=== PATIENT | male | born 1950 | race Caucasian/White ===

== ENCOUNTER 2021-06-29 16:44 | Inpatient (IN) | payer MEDICARE ==
[~2021-06-29] VITALS: Ht 182.9 cm; Wt 100.0 kg
[2021-06-29] MEDS ORDERED: aspirin 81mg tab.chew PO ONE (16:50)
[2021-06-29] MEDS ORDERED: metoprolol tartrate 50mg tablet PO ONE (17:30)
[2021-06-29] MEDS ORDERED: metoprolol tartrate 1mg/ml inj IV ONE (17:30)
[2021-06-29 17:34] LABS: BASOPHILS # (AUTO) 0.1 X10'3 (0-0.2); EOSINOPHILS # (AUTO) 0.1 X10'3 (0-0.9); MONOCYTES # (AUTO) 1.1 X10'3 (0-0.9); MONOCYTES % (AUTO) 23.2 % (2-12); NEUTROPHILS # (AUTO) 2.6 X10'3 (1.8-7.7); WHITE BLOOD COUNT 4.8 X10'3 (4.5-11.0)
[2021-06-29] MEDS ORDERED: normal saline 1000ML IV soln IVB ONE (17:35)
[2021-06-29] MEDS ORDERED: magnesium 2GM in 50ml NS 50 ML IV ONE (17:35)
[2021-06-29] MEDS ORDERED: LORazepam 2 mg/ml vial IV ONE (17:35)
[2021-06-29 17:36] LABS: BASOPHILS % (AUTO) 2.2 % (0-1); EOSINOPHILS % (AUTO) 2.7 % (0-6); HEMOGLOBIN 13.4 g/dl (14.0-17.9); LYMPHOCYTES # (AUTO) 0.9 X10'3 (1.1-4.8); LYMPHOCYTES % (AUTO) 17.8 % (21-51); MEAN CORPUSCULAR HEMOGLOBIN 33.8 PG (27.0-31.0); MEAN CORPUSCULAR HGB CONC 33.4 g/dL (33.0-36.5); MEAN CORPUSCULAR VOLUME 101.4 FL (78-98); MEAN PLATELET VOLUME 8.9 FL (7.4-10.4); NEUTROPHILS % (AUTO) 54.1 % (42-75); PLATELET COUNT 127 X10'3 (140-440); RED BLOOD COUNT 3.95 X10'6 (4.70-6.10); RED CELL DISTRIBUTION WIDTH 14.3 % (11.5-14.5)
[2021-06-29 17:53] LABS: ALANINE AMINOTRANSFERASE 61 U/L (12-78); ALBUMIN 4.1 G/DL (3.4-5.0); ALBUMIN/GLOBULIN RATIO 0.9 (1.1-1.5); ALKALINE PHOSPHATASE 145 IU/L (46-116); ANION GAP 11 (8-16); ASPARTATE AMINO TRANSFERASE 123 U/L (10-37); BILIRUBIN,TOTAL 1.7 MG/DL (0.1-1.0); BLOOD UREA NITROGEN 10 MG/DL (7-18); BUN/CREATININE RATIO 15.2 (5.4-32.0); CALCIUM 9.4 MG/DL (8.5-10.1); CHLORIDE 104 MMOL/L (99-107); CREATININE 0.66 MG/DL (0.60-1.10); GLUCOSE 104 MG/DL (70-104); POTASSIUM 4.1 MMOL/L (3.5-5.1); SODIUM 138 MMOL/L (135-145); TOTAL CARBON DIOXIDE 22.6 MMOL/L (24-32); TOTAL PROTEIN 8.5 G/DL (6.4-8.2); eGFR > 90 ML/MIN
[2021-06-29 18:01] LABS: MAGNESIUM 1.7 MG/DL (1.5-2.4)
[2021-06-29 18:04] LABS: PLATELET ESTIMATE DECREASED; TOTAL CELLS COUNTED 100
[2021-06-29 18:05] LABS: LARGE PLATELETS FEW
[2021-06-29] MEDS ORDERED: enoxaparin 100mg/ml syringe SUBCUT ONE (19:30)
[2021-06-29] MEDS ORDERED: ondansetron/PF 4mg/2ml inj IV PRN (20:10)
[2021-06-29] MEDS ORDERED: dextrose 5%-1/2 normal saline 1,000 ML IV SCH (20:10)
[2021-06-29] MEDS ORDERED: potassium Cl 20 mEq SR tablet PO PRN ×2 (20:10)
[2021-06-29] MEDS ORDERED: HYDROcodone/acetaminophen 5mg/325mg tablet PO PRN (20:10)
[2021-06-29] MEDS ORDERED: HYDROcodone/acetaminophen 10/325mg tab PO PRN (20:10)
[2021-06-29] MEDS ORDERED: haloperidol 5mg tablet PO PRN (20:10)
[2021-06-29] MEDS ORDERED: magnesium 4gm in 100ml NS 100 ML IV PRN (20:10)
[2021-06-29] MEDS ORDERED: potassium CL 10mEq/100ml bag 100 ML IV PRN (20:10)
[2021-06-29] MEDS ORDERED: dextrose 50%-water 50ml dispensing syringe IV PRN ×2 (20:10)
[2021-06-29] MEDS ORDERED: magnesium Cl slow-release 64mg tablet PO PRN (20:10)
[2021-06-29] MEDS ORDERED: haloperidol lactate 5mg/ml inj IM PRN ×2 (20:10)
[2021-06-29] MEDS ORDERED: mag hydrox/Alum hydrox/simeth 30ml oral suspension PO PRN (20:10)
[2021-06-29] MEDS ORDERED: LORazepam 2 mg/ml vial IV PRN ×2 (20:10)
[2021-06-29] MEDS ORDERED: magnesium 2GM in 50ml NS 50 ML IV PRN (20:10)
[2021-06-29] MEDS ORDERED: magnesium hydroxide 30ml (MOM) UD suspension PO PRN (20:10)
[2021-06-29] MEDS ORDERED: acetaminophen 325mg tablet PO PRN (20:10)
[2021-06-29 20:33] LABS: HEMOGLOBIN A1C 5.3 % (4.5-6.2)
[2021-06-29] MEDS ORDERED: thiamine 100mg/ml 2ml inj. IV SCH (21:00)
[2021-06-29 22:00] VITALS: BP 139/100
[2021-06-29 22:15] VITALS: BP 131/76
[2021-06-29 23:15] LABS: POTASSIUM 4.3 MMOL/L (3.5-5.1)
[2021-06-30 02:00] VITALS: BP 135/77
[2021-06-30] MEDS: LORazepam 2 mg/ml vial IV PRN ×2 (02:40→20:28)
[2021-06-30] MEDS: thiamine 100mg/ml 2ml inj. IV SCH ×4 (02:45→20:24)
[2021-06-30 06:00] VITALS: BP 131/82
[2021-06-30] MEDS ORDERED: ipratropium/albuterol 3ml nebule NEB PRN (06:10)
[2021-06-30 06:40] LABS: BASOPHILS # (AUTO) 0.1 X10'3 (0-0.2); EOSINOPHILS # (AUTO) 0.2 X10'3 (0-0.9); HEMOGLOBIN 11.2 g/dl (14.0-17.9); LYMPHOCYTES # (AUTO) 0.8 X10'3 (1.1-4.8); MEAN CORPUSCULAR HEMOGLOBIN 34.4 PG (27.0-31.0); RED CELL DISTRIBUTION WIDTH 14.4 % (11.5-14.5)
[2021-06-30 06:43] LABS: BASOPHILS % (AUTO) 2.4 % (0-1); EOSINOPHILS % (AUTO) 4.2 % (0-6); HEMATOCRIT 32.8 % (42.0-52.0); LYMPHOCYTES % (AUTO) 17.5 % (21-51); MEAN CORPUSCULAR HGB CONC 34.3 g/dL (33.0-36.5); MEAN CORPUSCULAR VOLUME 100.4 FL (78-98); MEAN PLATELET VOLUME 9.6 FL (7.4-10.4); MONOCYTES # (AUTO) 1.2 X10'3 (0-0.9); MONOCYTES % (AUTO) 26.4 % (2-12); NEUTROPHILS # (AUTO) 2.2 X10'3 (1.8-7.7); NEUTROPHILS % (AUTO) 49.5 % (42-75); PLATELET COUNT 110 X10'3 (140-440); RED BLOOD COUNT 3.27 X10'6 (4.70-6.10); WHITE BLOOD COUNT 4.5 X10'3 (4.5-11.0)
[2021-06-30 06:50] LABS: ALANINE AMINOTRANSFERASE 47 U/L (12-78); ALBUMIN 3.3 G/DL (3.4-5.0); ALBUMIN/GLOBULIN RATIO 0.9 (1.1-1.5); ALKALINE PHOSPHATASE 112 IU/L (46-116); ANION GAP 8 (8-16); ASPARTATE AMINO TRANSFERASE 87 U/L (10-37); BILIRUBIN,TOTAL 2.3 MG/DL (0.1-1.0); BLOOD UREA NITROGEN 12 MG/DL (7-18); BUN/CREATININE RATIO 18.2 (5.4-32.0); CALCIUM 8.3 MG/DL (8.5-10.1); CHLORIDE 106 MMOL/L (99-107); CREATININE 0.66 MG/DL (0.60-1.10); GLUCOSE 93 MG/DL (70-104); SODIUM 138 MMOL/L (135-145); TOTAL CARBON DIOXIDE 23.8 MMOL/L (24-32); TOTAL PROTEIN 6.9 G/DL (6.4-8.2); eGFR > 90 ML/MIN
[2021-06-30 06:54] LABS: CHOLESTEROL 133 MG/DL (0-200); HDL CHOLESTEROL 66 MG/DL (35-60); LDL CHOLESTEROL 78 MG/DL (50-100); MAGNESIUM 1.9 MG/DL (1.5-2.4); TRIGLYCERIDES 33 MG/DL (20-135)
[2021-06-30 07:45] LABS: NUCLEATED RED BLOOD CELLS 1 /100WBC (0-0); TOTAL CELLS COUNTED 100
[2021-06-30 07:46] LABS: LARGE PLATELETS MODERATE; PLATELET ESTIMATE DECREASED
[2021-06-30] MEDS: docusate sod 100mg capsule PO SCH ×2 (08:00→20:00)
[2021-06-30] MEDS ORDERED: enoxaparin 40mg/0.4ml syringe SUBCUT SCH (08:00)
[2021-06-30] MEDS: K and/or MAG REPLACEMENT MC SCH ×2 (08:00→20:00)
[2021-06-30] MEDS ORDERED: folic acid 1mg/0.2ml inj IV SCH ×2 (08:00)
[2021-06-30] MEDS: methylPREDNISolone sod succ/PF 40mg inj. IV SCH ×2 (08:23→20:24)
[2021-06-30] MEDS: apixaban 5mg tablet PO SCH ×2 (10:46→20:24)
[2021-06-30 11:00] VITALS: BP 147/98
[2021-06-30] MEDS ORDERED: NO HOME MEDS (12:47)
--- NOTE | 2021-06-30 14:45 | NUR ---
Student documentation: I have reviewed and agree with all interventions, assessments performed and documented by NESSA Beaulieu Senior Support Engineer. Addendum: 06/30/21 at 1446 by Beatriz Cabrales SS Amended: Links added.
[2021-06-30 15:00] VITALS: BP 132/78
[2021-06-30 18:00] VITALS: BP 158/90
[2021-06-30 22:00] VITALS: BP 141/71
[2021-07-01 02:00] VITALS: BP 120/60
[2021-07-01 06:00] VITALS: BP 116/62
[2021-07-01 07:14] LABS: BASOPHILS % (AUTO) 0.1 % (0-1); EOSINOPHILS % (AUTO) 0 % (0-6); HEMATOCRIT 34.1 % (42.0-52.0); HEMOGLOBIN 11.5 g/dl (14.0-17.9); LYMPHOCYTES # (AUTO) 0.4 X10'3 (1.1-4.8); LYMPHOCYTES % (AUTO) 6.6 % (21-51); MEAN CORPUSCULAR HEMOGLOBIN 33.9 PG (27.0-31.0); MEAN CORPUSCULAR HGB CONC 33.6 g/dL (33.0-36.5); MEAN CORPUSCULAR VOLUME 100.8 FL (78-98); MEAN PLATELET VOLUME 9.6 FL (7.4-10.4); MONOCYTES # (AUTO) 0.7 X10'3 (0-0.9); MONOCYTES % (AUTO) 14.1 % (2-12); NEUTROPHILS # (AUTO) 4.2 X10'3 (1.8-7.7); NEUTROPHILS % (AUTO) 79.2 % (42-75); PLATELET COUNT 102 X10'3 (140-440); RED BLOOD COUNT 3.38 X10'6 (4.70-6.10); RED CELL DISTRIBUTION WIDTH 14.1 % (11.5-14.5); WHITE BLOOD COUNT 5.3 X10'3 (4.5-11.0)
[2021-07-01 07:43] LABS: ALANINE AMINOTRANSFERASE 44 U/L (12-78); ALBUMIN 3.3 G/DL (3.4-5.0); ALBUMIN/GLOBULIN RATIO 0.9 (1.1-1.5); ALKALINE PHOSPHATASE 106 IU/L (46-116); ANION GAP 12 (8-16); ASPARTATE AMINO TRANSFERASE 66 U/L (10-37); BILIRUBIN,TOTAL 2.3 MG/DL (0.1-1.0); BLOOD UREA NITROGEN 16 MG/DL (7-18); BUN/CREATININE RATIO 20.3 (5.4-32.0); CHLORIDE 103 MMOL/L (99-107); CREATININE 0.79 MG/DL (0.60-1.10); GLUCOSE 120 MG/DL (70-104); MAGNESIUM 1.7 MG/DL (1.5-2.4); SODIUM 137 MMOL/L (135-145); TOTAL CARBON DIOXIDE 21.7 MMOL/L (24-32); TOTAL PROTEIN 6.8 G/DL (6.4-8.2); eGFR > 90 ML/MIN
[2021-07-01] MEDS: apixaban 5mg tablet PO SCH (09:07)
[2021-07-01] MEDS: thiamine 100mg/ml 2ml inj. IV SCH (09:07)
[2021-07-01] MEDS: methylPREDNISolone sod succ/PF 40mg inj. IV SCH (09:07)
[2021-07-01] MEDS: docusate sod 100mg capsule PO SCH (09:07)
--- NOTE | 2021-07-01 10:00 | NUR ---
Pt adamant about leaving AMA. Spoke and explained to Pt the cons, and potential harm of not being fully ready for DC and not being officially DC'd by MD. Pt was still adamant about leaving AMA. notified via page. Pt's belongings gathered and sent with Pt. Pt wheeled down to lobby and left with friend in private vehicle.
--- NOTE | 2021-07-01 10:49 | NUR ---
PAGER ID: [phone] MESSAGE: Re: Frankie Flores. Room: 3016B. Pt signed out AMA and left. -[facility] #[id number] -Dr. Parnell paged concerning Pt leaving AMA
--- NOTE | 2021-07-01 16:54 | NUR ---
Patient decided to leave A. Patient states he is been here for too long. charge nurse notify and MD notify.
[2021-07-01] MEDS ORDERED: LORazepam 2 mg/ml vial IV PRN (20:10)
[2021-07-01] MEDS ORDERED: LORazepam 1 MG tablet PO PRN (20:10)
[2021-07-03] MEDS ORDERED: LORazepam 1 MG tablet PO PRN (20:10)
[2021-07-03] MEDS ORDERED: LORazepam 2 mg/ml vial IV PRN (20:10)
[2021-07-04] MEDS ORDERED: folic acid 1mg tablet PO SCH ×2 (08:00)
[2021-07-04] MEDS ORDERED: thiamine 100mg tablet PO SCH ×2 (08:00)
== END 2021-07-01 10:30 | disposition left against medical advice (07) | DRG 313 ==
LOC: ER 16:45 → ED HOLD 20:16 → PCU 3S 21:45
PROVIDERS: ADMIT Internal Medicine; ATTEND Internal Medicine
DX: R07.9 Chest pain, unspecified (principal); J44.1 Chronic obstructive pulmonary disease with (acute) exacerbation; I48.91 Unspecified atrial fibrillation; F17.210 Nicotine dependence, cigarettes, uncomplicated; I10 Essential (primary) hypertension; Z53.29 Procedure and treatment not carried out because of patient's decision for other reasons; L40.9 Psoriasis, unspecified; R79.89 Other specified abnormal findings of blood chemistry; R06.2 Wheezing; F10.20 Alcohol dependence, uncomplicated; Z71.6 Tobacco abuse counseling
CPT/HCPCS: 36415; 71045; 76700; 80053; 80061; 83036; 83735; 83880; 84132; 84484; 85007; 85025; 87081; 93005; 93306; 94640; 94760; 96365; 99285; G0378; J2060; J2920; J3411; J3475; J3490; J7030; J7042

== ENCOUNTER 2021-07-11 15:57 | Inpatient (IN) | payer MEDICARE ==
[~2021-07-11] VITALS: Ht 182.9 cm; Wt 103.0 kg
[~2021-07-11 15:57] MED LIST: NO HOME MEDS
[2021-07-11 19:16] LABS: BASOPHILS # (AUTO) 0.1 X10'3 (0-0.2); EOSINOPHILS # (AUTO) 0.1 X10'3 (0-0.9); LYMPHOCYTES # (AUTO) 0.6 X10'3 (1.1-4.8); MONOCYTES # (AUTO) 1.2 X10'3 (0-0.9)
[2021-07-11 19:18] LABS: BASOPHILS % (AUTO) 2.2 % (0-1); EOSINOPHILS % (AUTO) 1.1 % (0-6); HEMATOCRIT 38.3 % (42.0-52.0); LYMPHOCYTES % (AUTO) 10.6 % (21-51); MEAN CORPUSCULAR HGB CONC 33.9 g/dL (33.0-36.5); MEAN CORPUSCULAR VOLUME 100.3 FL (78-98); MEAN PLATELET VOLUME 8.7 FL (7.4-10.4); MONOCYTES % (AUTO) 22.3 % (2-12); NEUTROPHILS # (AUTO) 3.5 X10'3 (1.8-7.7); NEUTROPHILS % (AUTO) 63.8 % (42-75); PLATELET COUNT 136 X10'3 (140-440); RED BLOOD COUNT 3.81 X10'6 (4.70-6.10); RED CELL DISTRIBUTION WIDTH 14.7 % (11.5-14.5); WHITE BLOOD COUNT 5.5 X10'3 (4.5-11.0)
[2021-07-11 19:33] LABS: ALANINE AMINOTRANSFERASE 52 U/L (12-78); ALKALINE PHOSPHATASE 192 IU/L (46-116); ANION GAP 12 (8-16); ASPARTATE AMINO TRANSFERASE 82 U/L (10-37); BILIRUBIN,TOTAL 2.9 MG/DL (0.1-1.0); BLOOD UREA NITROGEN 14 MG/DL (7-18); BUN/CREATININE RATIO 21.9 (5.4-32.0); CALCIUM 9.4 MG/DL (8.5-10.1); CHLORIDE 104 MMOL/L (99-107); CREATININE 0.64 MG/DL (0.60-1.10); GLUCOSE 95 MG/DL (70-104); POTASSIUM 4.4 MMOL/L (3.5-5.1); SODIUM 140 MMOL/L (135-145); TOTAL CARBON DIOXIDE 24.4 MMOL/L (24-32); TOTAL PROTEIN 7.9 G/DL (6.4-8.2); eGFR > 90 ML/MIN
[2021-07-11] MEDS ORDERED: apixaban 5mg tablet PO STA (20:38)
[2021-07-11] MEDS ORDERED: diltiazem 5mg/ml 5ml inj. IV ONE (20:40)
[2021-07-11] MEDS ORDERED: diltiazem-D5W 125mg/125ml 125 ML IV ONE (20:40)
--- NOTE | 2021-07-11 21:31 | NUR ---
pt presents to the ed with c/o fluttering sensation in his heart for the past couple days; he states he was seen in the ed a week ago with similar symptoms; tx and d/c; the pt denies pain, fever/chills, sorethroat, sob,n/v/d; pt on monitor, will ctm.
[2021-07-11 23:36] LABS: PLATELET ESTIMATE DECREASED; TOTAL CELLS COUNTED 100
[2021-07-12] VITALS (9 sets, daily range): BP systolic 115–138; BP diastolic 68–98
[2021-07-12] MEDS ORDERED: HYDROcodone/acetaminophen 10/325mg tab PO PRN (00:30)
[2021-07-12] MEDS ORDERED: HYDROcodone/acetaminophen 5mg/325mg tablet PO PRN (00:30)
[2021-07-12] MEDS ORDERED: mag hydrox/Alum hydrox/simeth 30ml oral suspension PO PRN (00:30)
[2021-07-12] MEDS ORDERED: ipratropium/albuterol 3ml nebule NEB PRN (00:30)
[2021-07-12] MEDS ORDERED: ondansetron 4mg rapidly disintigrating tab PO PRN (00:30)
[2021-07-12] MEDS ORDERED: magnesium hydroxide 30ml (MOM) UD suspension PO PRN (00:30)
[2021-07-12] MEDS ORDERED: acetaminophen 650mg rectal suppository RC PRN (00:30)
[2021-07-12] MEDS ORDERED: bisacodyl 10mg suppository rectal RC PRN (00:30)
[2021-07-12] MEDS ORDERED: acetaminophen 325mg tablet PO PRN ×2 (00:30)
[2021-07-12] MEDS ORDERED: diphenhydrAMINE 25mg capsule PO PRN (00:30)
[2021-07-12] MEDS ORDERED: morphine 2 MG/ML inj. syringe IV PRN ×2 (00:30)
[2021-07-12] MEDS: normal saline 1000ml 1,000 ML IV SCH ×2 (00:30→02:20)
[2021-07-12] MEDS ORDERED: diphenhydrAMINE 50 mg/ml inj IV PRN (00:30)
[2021-07-12] MEDS ORDERED: ondansetron/PF 4mg/2ml inj IV PRN (00:30)
[2021-07-12] MEDS ORDERED: HYDROmorphone inj. 0.5 MG/0.5 ML DISP.SYRIN IV PRN (00:30)
[2021-07-12 01:17] LABS: D-DIMER 3.04 MG/L FEU (0-0.50)
[2021-07-12 01:32] LABS: CREATINE KINASE 185 U/L (39-308); ETHANOL < 0.010 GM/DL (0.0-0.010); LIPASE 143 U/L (73-393); PHOSPHORUS 2.8 MG/DL (2.3-4.5)
--- NOTE | 2021-07-12 01:58 | NUR ---
pt's vss on Cardizem gtt: hr: 82, r:20, SaO2 94%, bp: 131/75, Dr. Barker notified; titrate Cardizem; verbal order, Restoril 15 mg po every hs, PRN .
--- NOTE | 2021-07-12 03:18 | NUR ---
BREAKING PRIMARY RN. GAVE REPORT TO NEW ADMITTING RN.
--- NOTE | 2021-07-12 06:35 | NUR ---
Problems reprioritized. Patient report given, questions answered & plan of care reviewed with LENORA Dietz.
[2021-07-12] MEDS ORDERED: docusate sod 100mg capsule PO SCH (08:00)
[2021-07-12] MEDS: azithromycin/NS 500mg/250ml 250 ML IV SCH (08:33)
[2021-07-12] MEDS: CefTRIAXone inj 1,000 MG in normal saline 100ml IV soln 100 ML IV SCH (08:33)
[2021-07-12] MEDS: furosemide 10 MG/1 ML 10ml inj IV SCH (08:34)
[2021-07-12] MEDS: lisinopril 10 MG tablet PO SCH (08:34)
[2021-07-12] MEDS: aspirin 81mg, enteric-coated 1 TAB TABLET.DR PO SCH (08:34)
[2021-07-12] MEDS: pantoprazole 40mg Tablet.DR PO SCH (08:35)
[2021-07-12 08:50] LABS: CLARITY,URINE CLEAR (Clear); COLOR,URINE YELLOW (Yellow); GLUCOSE, URINE NEGATIVE (Neg); KETONES,URINE 40 mg/dl (Neg); LEUKOCYTE ESTERASE ,URINE NEGATIVE (Neg); NITRITES, URINE NEGATIVE (Neg); OCCULT BLOOD,URINE NEGATIVE (Neg); PROTEIN,URINE NEGATIVE (Neg); UROBILINOGEN,URINE >=8.0 E.U/dL (0.2-1.0)
[2021-07-12 09:03] LABS: UA COLLECTION TYPE NON-SPECIFIED
[2021-07-12 09:05] LABS: URINE AMPHETAMINE SCREEN NEGATIVE (Neg); URINE BARBITUATE SCREEN NEGATIVE (Neg); URINE BENZODIAZEPINES SCREEN NEGATIVE (Neg); URINE CANNABINOID SCREEN NEGATIVE (Neg); URINE COCAINE SCREEN NEGATIVE (Neg); URINE METHADONE SCREEN NEGATIVE (Neg); URINE OPIATE SCREEN POSITIVE (Neg); URINE PHENCYCLIDINE SCREEN NEGATIVE (Neg)
[2021-07-12] MEDS ORDERED: iohexol 350MG/ML 100ml bottle IV ONE (10:15)
--- NOTE | 2021-07-12 11:50 | NUR ---
Dr Abhijit george for patient in room 5646Q Mr Mark rhythm 7 beats vtach asymptomatic
--- NOTE | 2021-07-12 18:43 | NUR ---
Patient in room PCU 3016. I have received report from LENORA Dietz and had the opportunity to ask questions and assume patient care.
--- NOTE | 2021-07-12 18:43 | NUR ---
Problems reprioritized. Patient report given Janneth, questions answered & plan of care reviewed with .
[2021-07-12] MEDS ORDERED: metoprolol tartrate 1mg/ml inj IV PRN (19:30)
[2021-07-12] MEDS ORDERED: aminophylline 500mg/20ml vial IV PRN (19:30)
[2021-07-12] MEDS ORDERED: regadenoson 0.4mg/5ml syringe IV PRN (19:30)
[2021-07-12] MEDS ORDERED: nitroGLYCERIN 0.4mg SUBLingual tab SL PRN (19:30)
[2021-07-12] MEDS: temazepam 15mg capsule PO PRN (21:07)
--- NOTE | 2021-07-12 21:35 | NUR ---
NEW ORDERS RECEIVED FOR POLLO SCAN AND STRESS TEST IN AM. PT TO BE NPO AT MIDNIGHT. PT INFORMED OF NEW CHANGES AND NEW DIET AND VERBALIZED UNDERSTANDING. NO S/S OF ACUTE PAIN/DISTRESS NOTED. WILL CONTINUE TO OBSERVE.
[2021-07-13] VITALS (21 sets, daily range): BP systolic 104–151; BP diastolic 59–94
--- NOTE | 2021-07-13 06:08 | NUR ---
Problems reprioritized. Patient report given, questions answered & plan of care reviewed with J Luis COOLEY.
[2021-07-13 06:36] LABS: BASOPHILS # (AUTO) 0.1 X10'3 (0-0.2); BASOPHILS % (AUTO) 1.3 % (0-1); EOSINOPHILS # (AUTO) 0.2 X10'3 (0-0.9); EOSINOPHILS % (AUTO) 4.2 % (0-6); HEMATOCRIT 35.5 % (42.0-52.0); HEMOGLOBIN 11.8 g/dl (14.0-17.9); LYMPHOCYTES # (AUTO) 0.8 X10'3 (1.1-4.8); LYMPHOCYTES % (AUTO) 16.3 % (21-51); MEAN CORPUSCULAR HEMOGLOBIN 33.5 PG (27.0-31.0); MEAN CORPUSCULAR HGB CONC 33.3 g/dL (33.0-36.5); MEAN CORPUSCULAR VOLUME 100.7 FL (78-98); MEAN PLATELET VOLUME 8.8 FL (7.4-10.4); MONOCYTES # (AUTO) 0.8 X10'3 (0-0.9); MONOCYTES % (AUTO) 17.2 % (2-12); NEUTROPHILS # (AUTO) 2.8 X10'3 (1.8-7.7); PLATELET COUNT 105 X10'3 (140-440); RED BLOOD COUNT 3.53 X10'6 (4.70-6.10); RED CELL DISTRIBUTION WIDTH 14.9 % (11.5-14.5); WHITE BLOOD COUNT 4.6 X10'3 (4.5-11.0)
[2021-07-13 06:49] LABS: ALANINE AMINOTRANSFERASE 36 U/L (12-78); ALBUMIN 3.1 G/DL (3.4-5.0); ALBUMIN/GLOBULIN RATIO 0.9 (1.1-1.5); ALKALINE PHOSPHATASE 154 IU/L (46-116); ANION GAP 13 (8-16); ASPARTATE AMINO TRANSFERASE 51 U/L (10-37); BILIRUBIN,TOTAL 2.9 MG/DL (0.1-1.0); BLOOD UREA NITROGEN 13 MG/DL (7-18); BUN/CREATININE RATIO 18.8 (5.4-32.0); CALCIUM 8.8 MG/DL (8.5-10.1); CHLORIDE 105 MMOL/L (99-107); CREATININE 0.69 MG/DL (0.60-1.10); GLUCOSE 95 MG/DL (70-104); POTASSIUM 3.3 MMOL/L (3.5-5.1); SODIUM 142 MMOL/L (135-145); TOTAL CARBON DIOXIDE 24.2 MMOL/L (24-32); TOTAL PROTEIN 6.5 G/DL (6.4-8.2); eGFR > 90 ML/MIN
[2021-07-13] MEDS: CefTRIAXone inj 1,000 MG in normal saline 100ml IV soln 100 ML IV SCH (10:00)
[2021-07-13] MEDS: pantoprazole 40mg Tablet.DR PO SCH (10:00)
[2021-07-13] MEDS: azithromycin/NS 500mg/250ml 250 ML IV SCH (10:00)
[2021-07-13] MEDS: aspirin 81mg, enteric-coated 1 TAB TABLET.DR PO SCH (10:04)
[2021-07-13] MEDS: furosemide 10 MG/1 ML 10ml inj IV SCH (10:04)
[2021-07-13] MEDS: lisinopril 10 MG tablet PO SCH (10:04)
[2021-07-13] MEDS ORDERED: magnesium 4gm in 100ml NS 100 ML IV PRN (10:45)
[2021-07-13] MEDS ORDERED: potassium CL 10mEq/100ml bag 100 ML IV PRN (10:45)
[2021-07-13] MEDS ORDERED: potassium Cl 20 mEq SR tablet PO PRN (10:45)
[2021-07-13] MEDS: potassium Cl 20 mEq SR tablet PO PRN (10:56)
--- NOTE | 2021-07-13 14:14 | NUR ---
JATIN Mccallum paged for patient in room 3018V, requested something to eat, been NPO since last night, lasixscan/stress cardiac done and resulted
[2021-07-13] MEDS ORDERED: fentaNYL/PF 50MCG/1 ML 2ML syringe ONE (15:09)
[2021-07-13] MEDS ORDERED: LIDOcaine 1% (10mg/ml)w/preservative inj. 20ml MDV ONE (15:09)
[2021-07-13] MEDS ORDERED: iohexol 350MG/ML 100ml bottle IV ONE (15:09)
[2021-07-13] MEDS ORDERED: midazolam 1 mg/ML 2ml injection ONE (15:09)
[2021-07-13] MEDS ORDERED: iohexol 350 MG/ML 50ML vial IV ONE (15:09)
[2021-07-13] MEDS ORDERED: diphenhydrAMINE 50 mg/ml inj ONE (15:41)
[2021-07-13] MEDS ORDERED: proCHLORperazine 10 MG/2 ml inj ONE (15:51)
[2021-07-13] MEDS ORDERED: metoprolol tartrate 1mg/ml inj IV ONE (15:59)
[2021-07-13 16:01] LABS: APTT 33 SECONDS (22-32)
[2021-07-13] MEDS ORDERED: OXAZEpam 15mg capsule PO PRN ×2 (17:15→19:20)
[2021-07-13] MEDS ORDERED: proCHLORperazine 10 MG/2 ml inj IV PRN ×2 (17:15→19:20)
[2021-07-13] MEDS ORDERED: HYDROcodone/acetaminophen 5mg/325mg tablet PO PRN ×2 (17:15→19:20)
[2021-07-13] MEDS ORDERED: ondansetron/PF 4mg/2ml inj IV PRN ×2 (17:15→19:20)
[2021-07-13] MEDS ORDERED: nitroGLYCERIN 0.4mg SUBLingual tab SL PRN ×2 (17:15→19:20)
[2021-07-13] MEDS ORDERED: HYDROcodone/acetaminophen 10/325mg tab PO PRN ×2 (17:15→19:20)
--- NOTE | 2021-07-13 17:30 | NUR ---
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
[2021-07-13] MEDS: normal saline 1000ml 1,000 ML IV SCH (17:33)
--- NOTE | 2021-07-13 18:25 | NUR ---
Patient in room PCU 3016. I have received report from LENORA Marr and had the opportunity to ask questions and assume patient care. Pt lying supine for 6hrs, post Cardiac Cath
--- NOTE | 2021-07-13 18:37 | NUR ---
Problems reprioritized. Patient report given, questions answered & plan of care reviewed with Kimmie.
[2021-07-13] MEDS ORDERED: LORazepam 0.5 MG tablet PO PRN (18:50)
[2021-07-13] MEDS ORDERED: normal saline 1000ml 1,000 ML IV SCH (19:20)
[2021-07-13] MEDS: furosemide 20MG tablet PO SCH (21:07)
[2021-07-13] MEDS: temazepam 15mg capsule PO PRN (21:13)
[2021-07-13] MEDS: metoprolol tartrate 25mg tablet PO SCH (21:13)
[2021-07-14] VITALS: BP 127/65
[2021-07-14 02:00] VITALS: BP 125/79
[2021-07-14] MEDS: normal saline 1000ml 1,000 ML IV SCH (02:59)
[2021-07-14 04:00] VITALS: BP 121/75
[2021-07-14 06:00] VITALS: BP 152/81
--- NOTE | 2021-07-14 06:16 | NUR ---
Problems reprioritized. Patient report given, questions answered & plan of care reviewed with LENORA Dietz.
[2021-07-14 06:39] LABS: BASOPHILS # (AUTO) 0.1 X10'3 (0-0.2); BASOPHILS % (AUTO) 1.5 % (0-1); EOSINOPHILS # (AUTO) 0.2 X10'3 (0-0.9); EOSINOPHILS % (AUTO) 4.1 % (0-6); HEMATOCRIT 37.1 % (42.0-52.0); HEMOGLOBIN 12.4 g/dl (14.0-17.9); LYMPHOCYTES # (AUTO) 0.6 X10'3 (1.1-4.8); LYMPHOCYTES % (AUTO) 12.3 % (21-51); MEAN CORPUSCULAR HEMOGLOBIN 33.1 PG (27.0-31.0); MEAN CORPUSCULAR HGB CONC 33.4 g/dL (33.0-36.5); MEAN CORPUSCULAR VOLUME 99.1 FL (78-98); MEAN PLATELET VOLUME 9.4 FL (7.4-10.4); MONOCYTES % (AUTO) 19.8 % (2-12); NEUTROPHILS # (AUTO) 3.2 X10'3 (1.8-7.7); NEUTROPHILS % (AUTO) 62.3 % (42-75); PLATELET COUNT 115 X10'3 (140-440); RED BLOOD COUNT 3.74 X10'6 (4.70-6.10); RED CELL DISTRIBUTION WIDTH 14.5 % (11.5-14.5); WHITE BLOOD COUNT 5.1 X10'3 (4.5-11.0)
[2021-07-14 06:45] LABS: ALANINE AMINOTRANSFERASE 32 U/L (12-78); ALBUMIN 3.1 G/DL (3.4-5.0); ALBUMIN/GLOBULIN RATIO 0.9 (1.1-1.5); ALKALINE PHOSPHATASE 149 IU/L (46-116); ANION GAP 6 (8-16); ASPARTATE AMINO TRANSFERASE 49 U/L (10-37); BILIRUBIN,TOTAL 2.1 MG/DL (0.1-1.0); BLOOD UREA NITROGEN 14 MG/DL (7-18); BUN/CREATININE RATIO 21.9 (5.4-32.0); CALCIUM 8.1 MG/DL (8.5-10.1); CHLORIDE 106 MMOL/L (99-107); CREATININE 0.64 MG/DL (0.60-1.10); GLUCOSE 94 MG/DL (70-104); POTASSIUM 3.2 MMOL/L (3.5-5.1); SODIUM 139 MMOL/L (135-145); TOTAL CARBON DIOXIDE 27.4 MMOL/L (24-32); TOTAL PROTEIN 6.6 G/DL (6.4-8.2); eGFR > 90 ML/MIN
[2021-07-14 07:25] LABS: TOTAL CELLS COUNTED 100
[2021-07-14 07:26] LABS: PLATELET ESTIMATE DECREASED
[2021-07-14 07:27] LABS: LARGE PLATELETS FEW
[2021-07-14] MEDS: lisinopril 10 MG tablet PO SCH (07:50)
[2021-07-14] MEDS: aspirin 81mg, enteric-coated 1 TAB TABLET.DR PO SCH (07:54)
[2021-07-14] MEDS: furosemide 20MG tablet PO SCH (07:55)
[2021-07-14] MEDS: pantoprazole 40mg Tablet.DR PO SCH (07:55)
[2021-07-14] MEDS: metoprolol tartrate 25mg tablet PO SCH (07:55)
[2021-07-14] MEDS: CefTRIAXone inj 1,000 MG in normal saline 100ml IV soln 100 ML IV SCH (07:56)
[2021-07-14] MEDS ORDERED: apixaban 5mg tablet PO SCH (08:00)
[2021-07-14] MEDS: azithromycin/NS 500mg/250ml 250 ML IV SCH (08:04)
[2021-07-14] MEDS: potassium Cl 20 mEq SR tablet PO PRN ×2 (08:07→12:28)
[2021-07-14 09:41] VITALS: BP 115/65
[2021-07-14 11:00] VITALS: BP 119/75
[2021-07-14] MEDS ORDERED: APIX5TAB3 PO (12:05)
[2021-07-14] MEDS ORDERED: LOP25T PO (12:05)
[2021-07-14] MEDS ORDERED: FURO20TA4 PO (12:05)
[2021-07-14] MEDS ORDERED: ASPI81TA52 PO (12:10)
[2021-07-14] MEDS ORDERED: LISI5TAB22 PO (12:10)
[2021-07-14] MEDS ORDERED: POTA-207 PO (12:28)
--- NOTE | 2021-07-14 13:41 | NUR ---
Discharge instructions given to patient, good understanding verbalized. PIV removed, pressure dressing applied, tele monitor box removed. All belongings packed will take home with.
[2021-07-15] MEDS ORDERED: azithromycin 250mg tablet PO SCH (08:00)
== END 2021-07-14 14:13 | disposition home or self-care (01) | DRG 286 ==
LOC: ER 15:57 → UNDOADMIN 07-12 00:37 → ED HOLD 07-12 00:37 → PCU 3S 07-12 03:58
PROVIDERS: ADMIT Family Medicine; ATTEND Internal Medicine
PROC: B32T1ZZ Computerized Tomography (CT Scan) of Left Pulmonary Artery using Low Osmolar Contrast (ICD-10-PCS; 2021-07-12)
PROC: B3201ZZ Computerized Tomography (CT Scan) of Thoracic Aorta using Low Osmolar Contrast (ICD-10-PCS; 2021-07-12)
PROC: B32S1ZZ Computerized Tomography (CT Scan) of Right Pulmonary Artery using Low Osmolar Contrast (ICD-10-PCS; 2021-07-12)
PROC: 4A023N7 Measurement of Cardiac Sampling and Pressure, Left Heart, Percutaneous Approach (ICD-10-PCS; principal; 2021-07-13)
PROC: B2111ZZ Fluoroscopy of Multiple Coronary Arteries using Low Osmolar Contrast (ICD-10-PCS; 2021-07-13)
PROC: B2151ZZ Fluoroscopy of Left Heart using Low Osmolar Contrast (ICD-10-PCS; 2021-07-13)
PROC: 4A033BC Measurement of Arterial Pressure, Coronary, Percutaneous Approach (ICD-10-PCS; 2021-07-13)
PROC: 4A02XM4 Measurement of Cardiac Total Activity, External Approach (ICD-10-PCS; 2021-07-13)
PROC: 3E033HZ Introduction of Radioactive Substance into Peripheral Vein, Percutaneous Approach (ICD-10-PCS; 2021-07-13)
DX: I48.91 Unspecified atrial fibrillation (principal); I50.23 Acute on chronic systolic (congestive) heart failure; J18.9 Pneumonia, unspecified organism; I20.0 Unstable angina; R18.8 Other ascites; I47.2 Ventricular tachycardia; K76.0 Fatty (change of) liver, not elsewhere classified; L40.9 Psoriasis, unspecified; R16.0 Hepatomegaly, not elsewhere classified; F17.200 Nicotine dependence, unspecified, uncomplicated; Z60.2 Problems related to living alone; D50.9 Iron deficiency anemia, unspecified; D69.6 Thrombocytopenia, unspecified; E87.6 Hypokalemia; F10.20 Alcohol dependence, uncomplicated; I11.0 Hypertensive heart disease with heart failure; K74.60 Unspecified cirrhosis of liver; Z79.01 Long term (current) use of anticoagulants; Z79.899 Other long term (current) drug therapy; Z91.19 Patient's noncompliance with other medical treatment and regimen; Z88.2 Allergy status to sulfonamides; Z71.6 Tobacco abuse counseling; Z71.41 Alcohol abuse counseling and surveillance of alcoholic
CPT/HCPCS: 36415; 71045; 71275; 78452; 80053; 80305; 80320; 81003; 82550; 83690; 83880; 84100; 84443; 84484; 85007; 85025; 85379; 85610; 85730; 87081; 93005; 93017; 93308; 93458; 93571; 94760; 96374; 96375; 99152; 99153; 99285; A4620; A6258; A9500; C1751; C1760; C1769; G0378; J0456; J0696; J0780; J1200; J1644; J1940; J2250; J2785; J3010; J3490; J7030; Q9967

== ENCOUNTER 2023-07-13 14:39 | Inpatient (IN) | payer MEDICARE ==
[~2023-07-13] VITALS: Ht 185.4 cm; Wt 125.0 kg
[~2023-07-13 14:39] MED LIST changes: +APIX5TAB3 PO; +FURO20TA4 PO; +LISI5TAB22 PO; +LOP25T PO; -NO HOME MEDS; +POTA-207 PO
[2023-07-13 15:17] LABS: BASOPHILS # (AUTO) 0.1 X10'3 (0-0.2); BASOPHILS % (AUTO) 0.6 % (0-1); EOSINOPHILS % (AUTO) 0.3 % (0-6); HEMATOCRIT 32.5 % (42.0-52.0); LYMPHOCYTES # (AUTO) 0.7 X10'3 (1.1-4.8); LYMPHOCYTES % (AUTO) 5.3 % (21-51); MEAN CORPUSCULAR HEMOGLOBIN 37.2 PG (27.0-31.0); MEAN CORPUSCULAR HGB CONC 33.7 g/dL (33.0-36.5); MEAN CORPUSCULAR VOLUME 110.2 FL (78-98); MONOCYTES % (AUTO) 14.7 % (2-12); NEUTROPHILS # (AUTO) 10.6 X10'3 (1.8-7.7); NEUTROPHILS % (AUTO) 79.1 % (42-75); PLATELET COUNT 88 X10'3 (140-440); RED BLOOD COUNT 2.95 X10'6 (4.70-6.10); RED CELL DISTRIBUTION WIDTH 16.2 % (11.5-14.5); WHITE BLOOD COUNT 13.3 X10'3 (4.5-11.0)
[2023-07-13 16:02] LABS: ALBUMIN 2.7 G/DL (3.4-5.0); ANION GAP 12 (8-16); BLOOD UREA NITROGEN 25 MG/DL (7-18); BUN/CREATININE RATIO 26.9 (10.0-20.0); CALCIUM 9.5 MG/DL (8.5-10.1); CHLORIDE 102 MMOL/L (99-107); CREATININE 0.93 MG/DL (0.60-1.10); GLUCOSE 101 MG/DL (70-104); PRO BRAIN NATRIURETIC PEPTIDE 6111 PG/ML (0-125); SODIUM 138 MMOL/L (135-145); TOTAL CARBON DIOXIDE 24.2 MMOL/L (24-32); eCRCL 81 ML/MIN; eGFR 80 ML/MIN
[2023-07-13 16:05] LABS: ANISOCYTOSIS 1+; LARGE PLATELETS FEW; PLATELET ESTIMATE DECREASED; POTASSIUM 4.3 MMOL/L (3.5-5.1); TOTAL CELLS COUNTED 100
[2023-07-13 16:06] LABS: BURR CELLS 1+; POLYCHROMASIA FEW; SCHISTOCYTES FEW
[2023-07-13 16:07] LABS: TARGET CELLS 1+
[2023-07-13] MEDS: LORazepam 2 mg/ml vial IV ONE (16:30)
[2023-07-13] MEDS: ipratropium/albuterol 3ml nebule NEB PRN (16:51)
[2023-07-13 16:54] VITALS: PULSE 114; RESP 16; O2SAT 97
[2023-07-13 16:59] VITALS: PULSE 118; O2SAT 98
[2023-07-13] MEDS: diltiazem 5mg/ml 5ml inj. IV ONE (17:53)
[2023-07-13 20:31] LABS: INR 1.7 INR; PROTHROMBIN TIME 17.7 SECONDS (9.0-12.0)
[2023-07-13 20:42] LABS: ALANINE AMINOTRANSFERASE 66 U/L (12-78); ALBUMIN 2.5 G/DL (3.4-5.0); ALKALINE PHOSPHATASE 137 IU/L (46-116); ASPARTATE AMINO TRANSFERASE 121 U/L (10-37)
[2023-07-13 20:45] LABS: ALBUMIN/GLOBULIN RATIO 0.6 (1.1-1.5); BILIRUBIN,DIRECT 8.3 MG/DL (0-0.3); TOTAL PROTEIN 6.4 G/DL (6.4-8.2)
[2023-07-13] MEDS ORDERED: acetaminophen 325mg tablet PO PRN (20:55)
[2023-07-13] MEDS ORDERED: LIDOcaine 2% 10ml TOPICAL JELLY (Urojet) TP ONE (20:55)
[2023-07-13] MEDS ORDERED: mag hydrox/Alum hydrox/simeth 30ml oral suspension PO PRN (20:55)
[2023-07-13] MEDS: normal saline 1000ml 1,000 ML IV SCH (20:55)
[2023-07-13] MEDS ORDERED: potassium Cl 40MEQ/1/2NS 520ml 520 ML IV PRN (20:55)
[2023-07-13] MEDS ORDERED: magnesium 4gm in 100ml NS 100 ML IV PRN (20:55)
[2023-07-13] MEDS ORDERED: potassium Cl 20 mEq SR tablet PO PRN ×2 (20:55)
[2023-07-13] MEDS ORDERED: magnesium Cl slow-release 64mg tablet PO PRN (20:55)
[2023-07-13] MEDS ORDERED: magnesium hydroxide 30ml (MOM) UD suspension PO PRN (20:55)
[2023-07-13] MEDS ORDERED: ondansetron/PF 4mg/2ml inj IV PRN (20:55)
[2023-07-13] MEDS: furosemide 40mg/4ml inj IV ONE (21:13)
[2023-07-13] MEDS: aspirin 325mg tablet PO ONE (21:15)
[2023-07-13] MEDS: atorvastatin 20mg tablet PO SCH (21:15)
[2023-07-13] MEDS: metoprolol tartrate 50mg tablet PO ONE (21:16)
[2023-07-13] MEDS: LidoCAINE 2% Topical Jelly 11mL syringe TOP ONE (21:17)
[2023-07-13 23:00] VITALS: BP 113/61; PULSE 80; RESP 16; TEMP 98.1; O2SAT 100
[2023-07-13] MEDS ORDERED: LORazepam 1 MG tablet PO PRN (23:05)
[2023-07-13] MEDS ORDERED: dextrose 50%-water 50ml dispensing syringe IV PRN (23:05)
[2023-07-13 23:39] VITALS: PULSE 83; RESP 16; O2SAT 100
[2023-07-14] VITALS (9 sets, daily range): BP systolic 96–120; BP diastolic 55–76; PULSE 72–109; RESP 13–19; TEMP 97.3–98.2; O2SAT 94–98
[2023-07-14] MEDS: lactulose 20gm/30ml cup PO ONE (00:51)
[2023-07-14] MEDS: spironolactone 50 MG tablet PO SCH (00:51)
[2023-07-14 07:06] LABS: BASOPHILS % (AUTO) 0.4 % (0-1); EOSINOPHILS % (AUTO) 0.5 % (0-6); HEMATOCRIT 29.1 % (42.0-52.0); HEMOGLOBIN 10.1 g/dl (14.0-17.9); LYMPHOCYTES # (AUTO) 0.8 X10'3 (1.1-4.8); LYMPHOCYTES % (AUTO) 8.5 % (21-51); MEAN CORPUSCULAR HEMOGLOBIN 38.1 PG (27.0-31.0); MEAN CORPUSCULAR HGB CONC 34.7 g/dL (33.0-36.5); MEAN CORPUSCULAR VOLUME 109.8 FL (78-98); MEAN PLATELET VOLUME 9.5 FL (7.4-10.4); MONOCYTES # (AUTO) 1.3 X10'3 (0-0.9); MONOCYTES % (AUTO) 13.9 % (2-12); NEUTROPHILS # (AUTO) 7.2 X10'3 (1.8-7.7); NEUTROPHILS % (AUTO) 76.7 % (42-75); PLATELET COUNT 88 X10'3 (140-440); RED BLOOD COUNT 2.65 X10'6 (4.70-6.10); WHITE BLOOD COUNT 9.4 X10'3 (4.5-11.0)
[2023-07-14 07:25] LABS: ALANINE AMINOTRANSFERASE 63 U/L (12-78); ALBUMIN 2.2 G/DL (3.4-5.0); ALKALINE PHOSPHATASE 127 IU/L (46-116); ANION GAP 8 (8-16); ASPARTATE AMINO TRANSFERASE 109 U/L (10-37); BLOOD UREA NITROGEN 25 MG/DL (7-18); BUN/CREATININE RATIO 26.3 (10.0-20.0); CALCIUM 8.6 MG/DL (8.5-10.1); CHLORIDE 104 MMOL/L (99-107); CREATININE 0.95 MG/DL (0.60-1.10); GLUCOSE 101 MG/DL (70-104); SODIUM 139 MMOL/L (135-145); TOTAL CARBON DIOXIDE 27.5 MMOL/L (24-32); eCRCL 79 ML/MIN; eGFR 78 ML/MIN
[2023-07-14] MEDS: azithromycin/NS 500mg/250ml 250 ML IV SCH (07:26)
[2023-07-14] MEDS: pantoprazole 40mg Tablet.DR PO SCH (07:32)
[2023-07-14] MEDS: cyanocobalamin 500mcg tablet PO SCH (07:32)
[2023-07-14 07:33] LABS: ALBUMIN/GLOBULIN RATIO 0.6 (1.1-1.5); POTASSIUM 3.9 MMOL/L (3.5-5.1)
[2023-07-14] MEDS: metoprolol tartrate 50mg tablet PO SCH (07:33)
[2023-07-14] MEDS: docusate sod 100mg capsule PO SCH (07:33)
[2023-07-14] MEDS: thiamine 100mg/ml 2ml inj. IV SCH (07:34)
[2023-07-14] MEDS: furosemide 40mg/4ml inj IV SCH (07:34)
[2023-07-14] MEDS: folic acid 1mg/0.2ml inj IV SCH (07:35)
[2023-07-14] MEDS ORDERED: enoxaparin 40mg/0.4ml syringe SUBCUT SCH (08:00)
[2023-07-14] MEDS: aspirin 81mg tab.chew PO SCH (09:26)
[2023-07-14] MEDS: PYRIDOXINE HCL (VITAMIN B6) 250 MG TABLET PO SCH (09:26)
[2023-07-14] MEDS: CefTRIAXone/D5W-Rocephin 1gm 50 ML IV SCH (09:26)
[2023-07-14 10:05] LABS: % IRON SATURATION 66 % (11-46); IRON 87 UG/DL (53-167); TOTAL IRON BINDING CAPACITY 131 UG/DL (259-388)
[2023-07-14] MEDS: temazepam 15mg capsule PO PRN (19:29)
[2023-07-15] VITALS (11 sets, daily range): BP systolic 95–150; BP diastolic 48–94; PULSE 46–96; RESP 17–23; TEMP 97.1–98.6; O2SAT 92–97
[2023-07-15 08:01] LABS: BASOPHILS % (AUTO) 0.3 % (0-1); EOSINOPHILS # (AUTO) 0.1 X10'3 (0-0.9); EOSINOPHILS % (AUTO) 0.8 % (0-6); HEMATOCRIT 28.1 % (42.0-52.0); HEMOGLOBIN 9.7 g/dl (14.0-17.9); LYMPHOCYTES # (AUTO) 0.8 X10'3 (1.1-4.8); LYMPHOCYTES % (AUTO) 8.2 % (21-51); MEAN CORPUSCULAR HGB CONC 34.6 g/dL (33.0-36.5); MEAN CORPUSCULAR VOLUME 109.8 FL (78-98); MEAN PLATELET VOLUME 9.3 FL (7.4-10.4); MONOCYTES # (AUTO) 1.2 X10'3 (0-0.9); MONOCYTES % (AUTO) 12.7 % (2-12); NEUTROPHILS # (AUTO) 7.4 X10'3 (1.8-7.7); PLATELET COUNT 82 X10'3 (140-440); RED BLOOD COUNT 2.56 X10'6 (4.70-6.10); RED CELL DISTRIBUTION WIDTH 16.4 % (11.5-14.5); WHITE BLOOD COUNT 9.5 X10'3 (4.5-11.0)
[2023-07-15 08:29] LABS: ALANINE AMINOTRANSFERASE 58 U/L (12-78); ALBUMIN 2.1 G/DL (3.4-5.0); ALKALINE PHOSPHATASE 120 IU/L (46-116); ANION GAP 8 (8-16); ASPARTATE AMINO TRANSFERASE 89 U/L (10-37); BILIRUBIN,TOTAL 8.9 MG/DL (0.1-1.0); BLOOD UREA NITROGEN 24 MG/DL (7-18); BUN/CREATININE RATIO 25.3 (10.0-20.0); CALCIUM 8.5 MG/DL (8.5-10.1); CHLORIDE 103 MMOL/L (99-107); CREATININE 0.95 MG/DL (0.60-1.10); GLUCOSE 126 MG/DL (70-104); POTASSIUM 3.7 MMOL/L (3.5-5.1); SODIUM 137 MMOL/L (135-145); TOTAL CARBON DIOXIDE 26.3 MMOL/L (24-32); eCRCL 79 ML/MIN; eGFR 78 ML/MIN
[2023-07-15 08:36] LABS: ALBUMIN/GLOBULIN RATIO 0.6 (1.1-1.5); TOTAL PROTEIN 5.8 G/DL (6.4-8.2)
[2023-07-15 08:48] LABS: ANISOCYTOSIS 1+; ELLIPTOCYTES FEW; HYPOCHROMASIA 2+; PLATELET ESTIMATE DECREASED; SCHISTOCYTES FEW
[2023-07-15 08:49] LABS: BURR CELLS FEW
[2023-07-15 08:50] LABS: POLYCHROMASIA FEW
[2023-07-16 01:41] VITALS: BP 106/67; PULSE 81; RESP 19; TEMP 97.5; O2SAT 94
[2023-07-16 06:00] VITALS: BP 116/69; PULSE 84; RESP 18; TEMP 98.9; O2SAT 97
[2023-07-16 07:09] LABS: EOSINOPHILS # (AUTO) 0.2 X10'3 (0-0.9); EOSINOPHILS % (AUTO) 1.9 % (0-6); HEMATOCRIT 26.9 % (42.0-52.0); HEMOGLOBIN 9.4 g/dl (14.0-17.9); LYMPHOCYTES % (AUTO) 10.2 % (21-51); MEAN CORPUSCULAR HGB CONC 34.9 g/dL (33.0-36.5)
[2023-07-16 07:11] LABS: BASOPHILS % (AUTO) 0.4 % (0-1); MEAN CORPUSCULAR VOLUME 108.9 FL (78-98); MEAN PLATELET VOLUME 9.6 FL (7.4-10.4); MONOCYTES # (AUTO) 1.5 X10'3 (0-0.9); MONOCYTES % (AUTO) 15.7 % (2-12); NEUTROPHILS # (AUTO) 6.8 X10'3 (1.8-7.7); NEUTROPHILS % (AUTO) 71.8 % (42-75); PLATELET COUNT 85 X10'3 (140-440); RED BLOOD COUNT 2.47 X10'6 (4.70-6.10); RED CELL DISTRIBUTION WIDTH 16.3 % (11.5-14.5); WHITE BLOOD COUNT 9.4 X10'3 (4.5-11.0)
[2023-07-16 07:52] LABS: ALANINE AMINOTRANSFERASE 60 U/L (12-78); ALKALINE PHOSPHATASE 123 IU/L (46-116); ANION GAP 9 (8-16); ASPARTATE AMINO TRANSFERASE 86 U/L (10-37); BLOOD UREA NITROGEN 24 MG/DL (7-18); BUN/CREATININE RATIO 25.5 (10.0-20.0); CHLORIDE 102 MMOL/L (99-107); CREATININE 0.94 MG/DL (0.60-1.10); GLUCOSE 111 MG/DL (70-104); POTASSIUM 3.9 MMOL/L (3.5-5.1); SODIUM 138 MMOL/L (135-145); TOTAL CARBON DIOXIDE 27.2 MMOL/L (24-32); eCRCL 80 ML/MIN; eGFR 79 ML/MIN
[2023-07-16 07:56] LABS: ALBUMIN/GLOBULIN RATIO 0.6 (1.1-1.5); TOTAL PROTEIN 5.5 G/DL (6.4-8.2)
[2023-07-16] MEDS: ipratropium/albuterol 3ml nebule NEB PRN (09:26)
[2023-07-16 09:29] VITALS: PULSE 93; RESP 16; O2SAT 93
[2023-07-16 09:36] VITALS: PULSE 87; RESP 18
[2023-07-16] MEDS ORDERED: METO50TA16 PO (10:53)
[2023-07-16 11:00] VITALS: BP 98/62; PULSE 78; RESP 18; TEMP 98.1; O2SAT 94
[2023-07-18] MEDS ORDERED: folic acid 1mg tablet PO SCH (08:00)
[2023-07-18] MEDS ORDERED: thiamine 100mg tablet PO SCH (08:00)
[2023-07-19] MEDS ORDERED: thiamine 100mg tablet PO SCH (08:00)
[2023-07-19] MEDS ORDERED: pyridoxine 50mg tablet PO SCH (08:00)
== END 2023-07-16 13:10 | DRG 280 ==
LOC: ER 14:40 → ED HOLD 20:56 → PCU 3S 22:45
PROVIDERS: ADMIT Internal Medicine Critical Care Medicine; ATTEND Internal Medicine
DX: I48.91 Unspecified atrial fibrillation (principal); I21.A1 Myocardial infarction type 2; J96.00 Acute respiratory failure, unspecified whether with hypoxia or hypercapnia; I50.22 Chronic systolic (congestive) heart failure; I11.0 Hypertensive heart disease with heart failure; D53.9 Nutritional anemia, unspecified; J44.9 Chronic obstructive pulmonary disease, unspecified; D69.6 Thrombocytopenia, unspecified; F10.21 Alcohol dependence, in remission; R15.9 Full incontinence of feces; E88.09 Other disorders of plasma-protein metabolism, not elsewhere classified; I25.119 Atherosclerotic heart disease of native coronary artery with unspecified angina pectoris; I25.5 Ischemic cardiomyopathy; K70.31 Alcoholic cirrhosis of liver with ascites; R29.6 Repeated falls; Z79.899 Other long term (current) drug therapy; Z87.891 Personal history of nicotine dependence; Z79.01 Long term (current) use of anticoagulants; Z88.2 Allergy status to sulfonamides
CPT/HCPCS: 36415; 71045; 76700; 80048; 80053; 80076; 82607; 82948; 83540; 83550; 83880; 84484; 85007; 85008; 85025; 85610; 87081; 93005; 93306; 94640; 94760; 96374; 97162; 97530; 99291; A4615; A6212; A6213; A6250; A6449; A6590; G0378; J0456; J0696; J1940; J3411; J3490; J7030